=== PATIENT | male | born 1970 | race Caucasian/White ===

== ENCOUNTER 2019-05-31 08:39 | Emergency (ER) | payer BC ==
[~2019-05-31] VITALS: Ht 175.3 cm; Wt 81.6 kg
[2019-05-31] MEDS ORDERED: LOTRISONE CREAM45 GM TOP (09:13)
[2019-05-31] MEDS ORDERED: BACTRIM DS TAB1 EACH PO (09:13)
== END 2019-05-31 09:29 | disposition home or self-care (01) ==
LOC: ER 08:39
DX: R21 Rash and other nonspecific skin eruption (principal)

== ENCOUNTER → 2019-05-31 | Emergency (ER) | payer BC ==
[~2019-05-31] VITALS: Ht 175.3 cm; Wt 81.6 kg
[~2019-05-31] MED LIST: BACTRIM DS TAB1 EACH PO; LOTRISONE CREAM45 GM TOP
== END | disposition left against medical advice (07) ==
LOC: ER 00:01
DX: Z53.20 Procedure and treatment not carried out because of patient's decision for unspecified reasons (principal)